=== PATIENT | female | born 1990 | race Caucasian/White ===

== ENCOUNTER 2016-07-18 09:22 | Emergency (ER) | payer OTHER ==
[2016-07-18 09:30] VITALS: TEMP 98.4; BMI 37.5
[2016-07-18] MEDS ORDERED: SODIUM CHLORIDE 1,000 ML IV STA (10:05)
[2016-07-18] MEDS ORDERED: KETOROLAC TROMETHAMINE 30 MG/1 ML VIAL IVPUSH ONE (10:05)
[2016-07-18] MEDS ORDERED: ONDANSETRON 4 MG/2 ML VIAL IVPUSH ONE (10:05)
[2016-07-18 10:36] LABS: BASOPHIL 0.4 % (0-2.0); EOSINOPHIL 0.6 % (0-4.5); MCH 25.3 pg (25.7-33.7); MCHC 32.2 g/dl (32.0-36.0); MEAN CELL VOLUME 78.7 fl (80-96); MEAN PLT VOLUME 7.9 fl (7.5-11.1); NEUTROPHILS 77.2 % (42.8-82.8); PLATELET COUNT 313 K/MM3 (134-434); RDW 14.6 % (11.6-15.6); WHITE BLOOD COUNT 12.7 K/mm3 (4.0-10.0)
[2016-07-18 10:37] LABS: PH,URINE 5.5 (5.0-8.0); URINE APPEARANCE CLEAR; URINE BILIRUBIN NEGATIVE (NEGATIVE); URINE COLOR LT. YELLOW; URINE GLUCOSE (UA) NEGATIVE (NEGATIVE); URINE KETONE NEGATIVE (NEGATIVE); URINE LEUK ESTERASE NEGATIVE (NEGATIVE); URINE NITRITE NEGATIVE (NEGATIVE); URINE PROTEIN NEGATIVE (NEGATIVE); URINE UROBILINOGEN 0.2 E.U/dl E.U./dl (0.2-1.0)
[2016-07-18 10:38] LABS: URINE BLOOD TRACE (NEGATIVE)
[2016-07-18] MEDS ORDERED: KETOROLAC TROMETHAMINE 30 MG/1 ML VIAL ONE (10:38)
[2016-07-18] MEDS ORDERED: ONDANSETRON 4 MG/2 ML VIAL ONE (10:39)
[2016-07-18 11:01] LABS: ALK PHOS 86 U/L (45-117); ANION GAP 8 (8-16); BILIRUBIN,TOTAL 0.3 mg/dL (0.2-1.0); CALCIUM 9.6 mg/dL (8.5-10.1); CO2 30 mmol/L (21-32); CREATININE 0.6 mg/dL (0.55-1.02); GLUCOSE,RANDOM 96 mg/dL (74-106); SGOT/AST 13 U/L (15-37); SGPT/ALT 34 U/L (12-78)
[2016-07-18 11:06] LABS: URINE BACTERIA RARE /hpf (NONE SEEN); URINE MUCUS RARE; URINE RBC 1 /hpf (0-3); URINE WBC 1 /hpf (3-5)
--- NOTE | 2016-07-18 11:41 | PDOC ---
History of Present Illness - General Chief Complaint: Pain Stated Complaint: PAIN/ ABD, BACK Time Seen by Provider: 07/18/16 09:36 History Source: Patient Exam Limitations: No Limitations - History of Present Illness Travel History: No Initial Comments: 07/18/16 11:44 25-year-old female presents to the emergency with complaints of mild frontal headache yesterday associate with epigastric cramping followed by one episode of diarrhea later that day. Patient states then today had no headache but complaining of nausea with right upper quadrant pain. Patient states pain has worsened with eating but denies any history of gallstones, pancreatitis, recent travel, recent illness, alcohol use, hepatitis. Patient denies irregular menses , GI disorders, fever or chills. Patient also has no urinary complaints and has no history of renal colic. Timing/Duration: reports: changing over time Quality: reports: mild, cramping Abdominal Pain Onset Location: reports: RUQ Pain Radiation: reports: no radiation Activities at Onset: reports: eating Aggravating Factors: improves with: Eating Alleviating Factors: improves with: None Past History - Past Medical History Allergies/Adverse Reactions: Allergies Allergy/AdvReac Type Severity Reaction Status Date / Time No Known Allergies Allergy Verified 07/18/16 09:27 Home Medications: Ambulatory Orders Pnv95/Ferrous Fumarate/FA [ Tablet] 1 each PO DAILY 08/13/12 Anemia: Yes Asthma: No Cancer: No Cardiac Disorders: No Diabetes: No HTN: No Seizures: No Thyroid Disease: No - Reproductive History LMP Normal: Yes Is Patient Now?: No - Psycho/Social/Smoking Cessation Hx Anxiety: No Suicidal Ideation: No Smoking History: Never smoked Have you smoked in the past 12 months: No Information on smoking cessation initiated: No Hx Alcohol Use: No Drug/Substance Use Hx: No Substance Use Type: None Hx Substance Use Treatment: No Patient Lives Alone: No Lives with/in: parents Abd/GI Specific PMHX - Complaint Specific PMHX Gall Bladder Disease: No GERD: No Review of Systems - Review of Systems Able to Perform ROS?: Yes Constitutional: No: Symptoms Reported HEENTM: No: Symptoms Reported Respiratory: No: Symptoms reported Cardiac (ROS): No: Symptoms Reported ABD/GI: Yes: Diarrhea (x 1 yesteerday), Nausea, Abdominal cramping. No: Poor Appetite, Poor Fluid Intake, Vomiting : Yes: Flank Pain (rt) Musculoskeletal: No: Back Pain, Joint Pain Integumentary: No: Symptoms Reported Neurological: No: Symptoms reported *Physical Exam - Vital Signs Last Vital Signs Temp Pulse Resp BP Pulse Ox 98.4 F 90 18 122/75 100 07/18/16 09:28 07/18/16 09:28 07/18/16 09:28 07/18/16 09:28 07/18/16 09:28 - Physical Exam General Appearance: Yes: Nourished, Appropriately Dressed. No: Apparent Distress HEENT: positive: EOMI, YENNY. negative: Pale Conjunctivae Neck: positive: Normal Thyroid, Supple Respiratory/Chest: positive: Lungs Clear, Normal Breath Sounds. negative: Respiratory Distress, Accessory Muscle Use Cardiovascular: positive: Regular Rhythm, Regular Rate. negative: Murmur Gastrointestinal/Abdominal: positive: Soft, Tenderness (ruq . mildly positive Serrato sign) Musculoskeletal: negative: CVA Tenderness (R), CVA Tenderness (L) Extremity: positive: Normal Capillary Refill. negative: Pedal Edema Integumentary: positive: Normal Color, Warm, Moist Neurologic: positive: Motor Strength 5/5 (ambulatory) ED Treatment Course - LABORATORY CBC & Chemistry Diagram: 07/18/16 10:11 07/18/16 10:11 - ADDITIONAL ORDERS Additional order review: Laboratory Results 07/18/16 10:10 Urine Color Lt. yellow Urine Appearance Clear Urine pH 5.5 Ur Specific [place]urn 1.020 Urine Protein Negative Urine Glucose (UA) Negative Urine Ketones Negative Urine Blood Trace H Urine Nitrite Negative Urine Bilirubin Negative Urine Urobilinogen 0.2 e.u/dl Ur Leukocyte Esterase Negative Urine HCG, Qual Negative 07/18/16 10:11 RBC 5.15 MCV 78.7 L MCHC 32.2 RDW 14.6 MPV 7.9 Neutrophils % 77.2 D Lymphocytes % 15.6 D Monocytes % 6.2 Eosinophils % 0.6 Basophils % 0.4 - RADIOLOGY Radiology Studies Ordered: Category Date Time Status GALLBLADDER US [US] Stat Ultrasound 07/18/16 10:05 Ordered - Medications Given in the ED: ED Medications Discontinued Medications Generic Name Dose Route Start Last Admin Trade Name Freq PRN Reason Stop Dose Admin Ketorolac Tromethamine 30 mg 07/18/16 10:05 07/18/16 10:48 Toradol Injection - IVPUSH 07/18/16 10:06 30 mg ONCE ONE Administration Ondansetron HCl 4 mg 07/18/16 10:05 07/18/16 10:48 Zofran Injection IVPUSH 07/18/16 10:06 4 mg ONCE ONE Administration Medical Decision Making - Medical Decision Making 07/18/16 10:45 Patient with epigastric to right upper quadrant pain associated with nausea since yesterday. Patient on exam had right upper quadrant tenderness with faintly positive Serrato sign. Patient ordered for CBC, comp, lipase, urinalysis urine , Zofran, IV fluids and gallbladder ultrasound. 07/18/16 14:35 Laboratory Tests 07/18/16 07/18/16 07/18/16 10:10 10:11 10:11 WBC 12.7 H Hgb 13.1 Hct 40.5 Neutrophils % 77.2 D Sodium 138 Potassium 4.5 Chloride 100 Carbon Dioxide 30 Anion Gap 8 BUN 6 L D Creatinine 0.6 Creat Clearance w eGFR > 60 Random Glucose 96 D Calcium 9.6 AST 13 L D Lipase 92 Urine Blood Trace H Ur Leukocyte Esterase Negative Urine WBC 1 Urine HCG, Qual Negative Gallbladder shows distention without gallbladder wall thickening pericholecystic fluid or common bile duct dilatation. Case discussed with surgeon Dr. Montiel and feels patient may benefit from a low-fat diet if she is asymptomatic and have her follow-up in the office or if patient continues with pain and is uncomfortable with going home he will consider surgery. Patient reexamined patient has no right upper quadrant tenderness pain at this time. patient states she rather go home and try low-fat diet versus surgery at this time. Patient will be discharged home with recommendations in contact information. Repeat vitals pending *DC/Admit/Observation/Transfer Diagnosis at time of Disposition: Multiple gallstones - Discharge Dispostion Disposition: HOME - Referrals Referrals: Regino Oden MD [Staff Physician] - - Patient Instructions Printed Discharge Instructions: DI for Gallstones, Fat-Restricted Diet Additional Instructions: At this time he may try low-fat diet which may alleviate your symptoms. I do also recommend contacting the surgeon Dr. Montiel. But if your symptoms worsen or return please return to the ED as this may require immediate attention.
[2016-07-18 15:24] VITALS: BP 133/70; PULSE 93
== END 2016-07-18 15:24 | disposition home or self-care (01) ==
LOC: JER 09:22
PROC: 3E0333Z Introduction of Anti-inflammatory into Peripheral Vein, Percutaneous Approach (ICD-10-PCS; principal; 2016-07-18)
PROC: 3E033GC Introduction of Other Therapeutic Substance into Peripheral Vein, Percutaneous Approach (ICD-10-PCS; 2016-07-18)
DX: K80.20 Calculus of gallbladder without cholecystitis without obstruction (principal)
CPT/HCPCS: 36415; 76705-TC; 80053; 81003; 81015; 83690; 84703; 85025; 96374; 96375; 99282-25